=== PATIENT | female | born 1955 | race Caucasian/White ===

== ENCOUNTER 2022-06-22 15:10 | Emergency (ER) | payer OTHER ==
[2022-06-22] MEDS ORDERED: ACETAMINOPHEN 325 MG TABLET (FP) PO ONE (15:24)
[2022-06-22] MEDS ORDERED: ACETAMINOPHEN 325 MG TABLET (FP) ONE (15:31)
[2022-06-22 15:43] VITALS: BP 161/98; PULSE 83; RESP 18; TEMP 98.5; BMI 27.3
== END 2022-06-22 16:40 | disposition home or self-care (01) ==
LOC: FER 15:10
DX: S42.294A Other nondisplaced fracture of upper end of right humerus, initial encounter for closed fracture (principal); W01.0XXA Fall on same level from slipping, tripping and stumbling without subsequent striking against object, initial encounter; Y92.093 Driveway of other non-institutional residence as the place of occurrence of the external cause
CPT/HCPCS: 73030-TC-RT-FY; 73060-TC-RT-FY; 99283-25

== ENCOUNTER 2023-04-08 10:52 | Emergency (ER) | payer OTHER ==
[2023-04-08] MEDS ORDERED: ACETAMINOPHEN 500 MG TABLET (FP) PO ONE (11:09)
[2023-04-08] MEDS ORDERED: ACETAMINOPHEN 500 MG TABLET (FP) ONE (11:14)
[2023-04-08 11:22] VITALS: BP 134/74; PULSE 85; RESP 16; TEMP 97.6; BMI 26.4
== END 2023-04-08 13:20 | disposition home or self-care (01) ==
LOC: FER 10:52
DX: M25.552 Pain in left hip (principal); M54.9 Dorsalgia, unspecified; W19.XXXD Unspecified fall, subsequent encounter; Y93.89 Activity, other specified
CPT/HCPCS: 72131-TC; 72192-TC; 99284-25

== ENCOUNTER 2024-01-09 14:41 | Emergency (ER) | payer OTHER ==
[2024-01-09] MEDS ORDERED: ACETAMINOPHEN 325 MG TABLET (FP) PO ONE (15:01)
[2024-01-09 15:14] VITALS: RESP 20; TEMP 99; BMI 26.4
[2024-01-09] MEDS ORDERED: ACETAMINOPHEN INJECTION 100 ML ONE (15:50)
[2024-01-09 16:02] LABS: INR 1.05 (0.83-1.09); PROTHROMBIN TIME (PATIENT) 11.9 SEC (9.7-13.0)
[2024-01-09 16:05] LABS: ACTIVATED PTT 32.9 SECONDS (25.2-36.5)
[2024-01-09 16:15] LABS: HEMATOCRIT 40.6 % (32.4-45.2); HEMOGLOBIN 13.2 G/dL (10.7-15.3); MCH 28.5 pg (25.7-33.7); MCHC 32.6 g/dl (32.0-36.0); MEAN CELL VOLUME 87.4 fl (80-96); MEAN PLT VOLUME 10.4 fl (7.5-11.1); PLATELET COUNT 443.8 10^3/uL (134-434); RBC 4.64 10^6/uL (3.60-5.2); RDW 18.6 % (11.6-15.6); WHITE BLOOD COUNT 20.2 10^3/uL (4.0-10.8)
[2024-01-09 16:17] LABS: ALBUMIN 4.3 g/dl (3.4-5.0); ALK PHOS 55 U/L (45-117); ANION GAP 9 mmol/L (4-13); BILIRUBIN,TOTAL 0.7 mg/dl (0.2-1); CALCIUM 9.6 mg/dl (8.5-10.1); CHLORIDE 104 mmol/L (98-107); CO2 25 mmol/L (21-32); CREATININE 0.9 mg/dl (0.6-1.3); GLUCOSE,RANDOM 107 mg/dl (74-106); POTASSIUM 4.2 mmol/L (3.5-5.1); SGOT/AST 20 U/L (15-37); SGPT/ALT 15 U/L (7-52); SODIUM 138 mmol/L (136-145); TOT PROT 6.6 g/dl (6.4-8.2)
[2024-01-09] MEDS: CEFTRIAXONE 1,000 MG in DEXTROSE 5%-WATER - 50 ML IVPB ONE (16:40)
[2024-01-09] MEDS: SODIUM CHLORIDE 0.9% 1000 ML INFUS.BAG IV ONE (16:40)
[2024-01-09] MEDS ORDERED: cefTRIAXone SODIUM 1 GM VIAL ONE (16:42)
[2024-01-09 16:53] LABS: PLATELET ESTIMATE SLT INCREASE
[2024-01-09 17:25] VITALS: BP 130/82; PULSE 96
== END 2024-01-09 17:34 | disposition home or self-care (01) ==
LOC: FER 14:41
DX: N39.0 Urinary tract infection, site not specified (principal); R31.9 Hematuria, unspecified; R35.0 Frequency of micturition; R39.15 Urgency of urination; R63.0 Anorexia; Z20.822 Contact with and (suspected) exposure to COVID-19
CPT/HCPCS: 0241U-QW; 36415; 80053; 81003; 81015; 85027; 85610; 85730; 87086; 99284-25